=== PATIENT | female | born 1965 | race Caucasian/White ===

== ENCOUNTER 2017-12-27 12:10 | Inpatient (IN) | payer BC, OTHER ==
[~2017-12-27] VITALS: Ht 170.2 cm; Wt 95.5 kg
[~2017-12-27 12:10] MED LIST: CHOL200016 PO; ENOX80SY7 SUBCUT; MULT-1085 PO; RIVA20TA PO
[2017-12-27 12:33] LABS: BASOPHILS % (AUTO) 0.5 % (0-1); EOSINOPHILS # (AUTO) 0.1 X10'3 (0-0.9); EOSINOPHILS % (AUTO) 1.1 % (0-6); HEMATOCRIT 42.9 % (35.0-45.0); HEMOGLOBIN 14.9 g/dl (12.0-16.0); LYMPHOCYTES % (AUTO) 27.3 % (21-51); MEAN CORPUSCULAR HEMOGLOBIN 32.5 PG (27.0-31.0); MEAN CORPUSCULAR HGB CONC 34.7 % (33.0-36.5); MEAN CORPUSCULAR VOLUME 93.6 FL (78-98); MEAN PLATELET VOLUME 9.1 FL (7.4-10.4); MONOCYTES # (AUTO) 0.4 X10'3 (0-0.9); MONOCYTES % (AUTO) 4.7 % (2-12); NEUTROPHILS % (AUTO) 66.4 % (42-75); PLATELET COUNT 439 X10'3 (140-440); RED BLOOD COUNT 4.58 X10'6 (4.20-5.60); RED CELL DISTRIBUTION WIDTH 13.9 % (11.5-14.5); WHITE BLOOD COUNT 7.5 X10'3 (4.5-11.0)
[2017-12-27 12:44] LABS: PARTIAL THROMBOPLASTIN TIME 27 SECONDS (22-32)
[2017-12-27 12:58] LABS: ALANINE AMINOTRANSFERASE 35 U/L (12-78); ALBUMIN 3.9 G/DL (3.4-5.0); ALBUMIN/GLOBULIN RATIO 1.1 (1.1-1.5); ALKALINE PHOSPHATASE 56 IU/L (46-116); ANION GAP 10 (8-16); ASPARTATE AMINO TRANSFERASE 19 U/L (10-37); BILIRUBIN,TOTAL 0.9 MG/DL (0.1-1.0); BLOOD UREA NITROGEN 12 MG/DL (7-18); BUN/CREATININE RATIO 15.2 (6.6-38.0); CALCIUM 9.1 MG/DL (8.5-10.1); CHLORIDE 104 MMOL/L (99-107); CREATININE 0.79 MG/DL (0.40-0.90); GLUCOSE 97 MG/DL (70-104); SODIUM 141 MMOL/L (135-145); TOTAL CARBON DIOXIDE 26.9 MMOL/L (24-32); TOTAL PROTEIN 7.4 G/DL (6.4-8.2); eGFR 77 ML/MIN
[2017-12-27] MEDS ORDERED: iohexol 350MG/ML 100ml bottle IV ONE (13:01)
[2017-12-27] MEDS ORDERED: levoFLOXACIN-Levaquin 750MG/D5 150 ML IV STA (16:02)
[2017-12-27] MEDS ORDERED: ipratropium/albuterol 3ml nebule NEB PRN (17:15)
[2017-12-27] MEDS ORDERED: magnesium hydroxide 30ml (MOM) UD suspension PO PRN (17:15)
[2017-12-27] MEDS ORDERED: acetaminophen 325mg tablet PO PRN (17:15)
[2017-12-27] MEDS ORDERED: nitroGLYCERIN 0.4mg SUBLingual tab SL PRN (17:15)
[2017-12-27] MEDS ORDERED: ondansetron/PF 4mg/2ml inj IV PRN (17:15)
[2017-12-27] MEDS ORDERED: HYDROmorphone inj. 0.5 MG/0.5 ML DISP.SYRIN IV PRN ×2 (17:15)
[2017-12-27] MEDS ORDERED: regadenoson 0.4mg/5ml syringe IV ONE (17:15)
[2017-12-27] MEDS ORDERED: metoprolol tartrate 1mg/ml inj IV PRN (17:15)
[2017-12-27] MEDS ORDERED: mag hydrox/Alum hydrox/simeth 30ml oral suspension PO PRN (17:15)
[2017-12-27] MEDS: normal saline 1000ml 1,000 ML IV SCH (18:07)
[2017-12-27] MEDS ORDERED: HYDROcodone/acetaminophen 10/325mg tab PO PRN (19:15)
[2017-12-27] MEDS ORDERED: HYDROcodone/acetaminophen 5mg/325mg tablet PO PRN (19:15)
[2017-12-27 22:29] VITALS: BP 130/64
[2017-12-28] VITALS (22 sets, daily range): BP systolic 98–157; BP diastolic 55–82
[2017-12-28] MEDS: normal saline 1000ml 1,000 ML IV SCH ×3 (03:13→23:13)
[2017-12-28 04:17] LABS: BASOPHILS % (AUTO) 0.6 % (0-1); EOSINOPHILS # (AUTO) 0.1 X10'3 (0-0.9); EOSINOPHILS % (AUTO) 2.2 % (0-6); HEMATOCRIT 39.6 % (35.0-45.0); HEMOGLOBIN 13.7 g/dl (12.0-16.0); LYMPHOCYTES # (AUTO) 2.2 X10'3 (1.1-4.8); LYMPHOCYTES % (AUTO) 33.3 % (21-51); MEAN CORPUSCULAR HEMOGLOBIN 32.5 PG (27.0-31.0); MEAN CORPUSCULAR HGB CONC 34.5 % (33.0-36.5); MEAN CORPUSCULAR VOLUME 94.2 FL (78-98); MEAN PLATELET VOLUME 9.6 FL (7.4-10.4); MONOCYTES # (AUTO) 0.4 X10'3 (0-0.9); MONOCYTES % (AUTO) 6.6 % (2-12); NEUTROPHILS # (AUTO) 3.8 X10'3 (1.8-7.7); NEUTROPHILS % (AUTO) 57.3 % (42-75); PLATELET COUNT 373 X10'3 (140-440); RED BLOOD COUNT 4.21 X10'6 (4.20-5.60); RED CELL DISTRIBUTION WIDTH 14.2 % (11.5-14.5); WHITE BLOOD COUNT 6.6 X10'3 (4.5-11.0)
[2017-12-28 05:01] LABS: ALANINE AMINOTRANSFERASE 26 U/L (12-78); ALKALINE PHOSPHATASE 46 IU/L (46-116); ANION GAP 10 (8-16); ASPARTATE AMINO TRANSFERASE 16 U/L (10-37); BILIRUBIN,TOTAL 0.8 MG/DL (0.1-1.0); BLOOD UREA NITROGEN 12 MG/DL (7-18); BUN/CREATININE RATIO 14.5 (6.6-38.0); CALCIUM 8.1 MG/DL (8.5-10.1); CHLORIDE 104 MMOL/L (99-107); CHOL/HDL RATIO 2.8 (0.00-4.99); CHOLESTEROL 158 MG/DL (0-200); CREATININE 0.83 MG/DL (0.40-0.90); GLUCOSE 89 MG/DL (70-104); HDL CHOLESTEROL 57 MG/DL (35-60); LDL CHOLESTEROL 81 MG/DL (50-100); POTASSIUM 3.6 MMOL/L (3.5-5.1); SODIUM 140 MMOL/L (135-145); TOTAL CARBON DIOXIDE 26.2 MMOL/L (24-32); TOTAL PROTEIN 5.9 G/DL (6.4-8.2); TRIGLYCERIDES 105 MG/DL (20-135); eGFR 72 ML/MIN
[2017-12-28] MEDS ORDERED: regadenoson 0.4mg/5ml syringe IV ONE ×2 (07:00→09:47)
[2017-12-28] MEDS: enoxaparin 40mg/0.4ml syringe SQ SCH (08:00)
[2017-12-28] MEDS ORDERED: aminophylline inj. 0 ML IV ONE (09:47)
[2017-12-28] MEDS: aminophylline 250mg/10ml inj. IV PRN ×2 (09:49→10:14)
[2017-12-28] MEDS ORDERED: LIDOcaine 1%/PF (10mg/ml) 5ml vial ONE ×2 (15:52→16:23)
[2017-12-28] MEDS ORDERED: fentaNYL/PF 50MCG/1 ML 2ML syringe ONE (15:52)
[2017-12-28] MEDS ORDERED: nitroGLYCERIN-Tridil 50MG/D5W 250 ML IV ONE (15:52)
[2017-12-28] MEDS ORDERED: iohexol 350MG/ML 100ml bottle IV ONE (15:52)
[2017-12-28] MEDS ORDERED: midazolam 2 mg/2 ml injection ONE (15:52)
[2017-12-28] MEDS ORDERED: verapamil 2.5 mg/ml inj IV ONE (15:52)
[2017-12-28] MEDS ORDERED: heparin 1,000unit/ml 10ml vial 10 ML ONE (15:52)
[2017-12-28] MEDS ORDERED: nitroGLYCERIN 0.4mg SUBLingual tab SL PRN (17:35)
[2017-12-28] MEDS ORDERED: proCHLORperazine 10 MG/2 ml inj IV PRN (17:35)
[2017-12-28] MEDS ORDERED: HYDROcodone/acetaminophen 10/325mg tab PO PRN (17:35)
[2017-12-28] MEDS ORDERED: ondansetron/PF 4mg/2ml inj IV PRN (17:35)
[2017-12-28] MEDS ORDERED: OXAZEpam 15mg capsule PO PRN (17:35)
[2017-12-28] MEDS ORDERED: normal saline 1000ml 1,000 ML IV SCH (17:35)
[2017-12-28] MEDS ORDERED: HYDROcodone/acetaminophen 5mg/325mg tablet PO PRN (17:35)
[2017-12-29 03:00] VITALS: BP 108/55
[2017-12-29 05:15] LABS: BASOPHILS % (AUTO) 0.4 % (0-1); EOSINOPHILS # (AUTO) 0.1 X10'3 (0-0.9); HEMATOCRIT 40.7 % (35.0-45.0); LYMPHOCYTES # (AUTO) 1.8 X10'3 (1.1-4.8); LYMPHOCYTES % (AUTO) 24.7 % (21-51); MEAN CORPUSCULAR HEMOGLOBIN 32.3 PG (27.0-31.0); MEAN CORPUSCULAR HGB CONC 34.4 % (33.0-36.5); MEAN CORPUSCULAR VOLUME 93.8 FL (78-98); MEAN PLATELET VOLUME 9.6 FL (7.4-10.4); MONOCYTES # (AUTO) 0.4 X10'3 (0-0.9); MONOCYTES % (AUTO) 5.9 % (2-12); NEUTROPHILS # (AUTO) 4.9 X10'3 (1.8-7.7); PLATELET COUNT 372 X10'3 (140-440); RED BLOOD COUNT 4.34 X10'6 (4.20-5.60); RED CELL DISTRIBUTION WIDTH 13.6 % (11.5-14.5); WHITE BLOOD COUNT 7.3 X10'3 (4.5-11.0)
[2017-12-29 05:31] LABS: ALANINE AMINOTRANSFERASE 29 U/L (12-78); ALBUMIN 3.1 G/DL (3.4-5.0); ALBUMIN/GLOBULIN RATIO 1.1 (1.1-1.5); ALKALINE PHOSPHATASE 42 IU/L (46-116); ANION GAP 7 (8-16); ASPARTATE AMINO TRANSFERASE 19 U/L (10-37); BILIRUBIN,TOTAL 0.9 MG/DL (0.1-1.0); BLOOD UREA NITROGEN 10 MG/DL (7-18); BUN/CREATININE RATIO 13.2 (6.6-38.0); CALCIUM 8.1 MG/DL (8.5-10.1); CHLORIDE 106 MMOL/L (99-107); CREATININE 0.76 MG/DL (0.40-0.90); GLUCOSE 92 MG/DL (70-104); POTASSIUM 3.7 MMOL/L (3.5-5.1); SODIUM 140 MMOL/L (135-145); TOTAL CARBON DIOXIDE 26.9 MMOL/L (24-32); eGFR 80 ML/MIN
[2017-12-29 06:00] VITALS: BP 114/85
[2017-12-29] MEDS: enoxaparin 40mg/0.4ml syringe SQ SCH (08:29)
== END 2017-12-29 11:00 | disposition home or self-care (01) | DRG 287 ==
LOC: ER 12:11 → ED HOLD 17:13 → ORTHO 4S 22:00 → PCU 3S 12-28 16:55
PROVIDERS: ADMIT Family Medicine; ATTEND Family Medicine
PROC: 4A023N7 Measurement of Cardiac Sampling and Pressure, Left Heart, Percutaneous Approach (ICD-10-PCS; principal; 2017-12-28)
PROC: B2151ZZ Fluoroscopy of Left Heart using Low Osmolar Contrast (ICD-10-PCS; 2017-12-28)
PROC: B2111ZZ Fluoroscopy of Multiple Coronary Arteries using Low Osmolar Contrast (ICD-10-PCS; 2017-12-28)
DX: I20.0 Unstable angina (principal); D68.59 Other primary thrombophilia; Z90.710 Acquired absence of both cervix and uterus; Z88.0 Allergy status to penicillin; Z79.01 Long term (current) use of anticoagulants; Z86.718 Personal history of other venous thrombosis and embolism; Z82.49 Family history of ischemic heart disease and other diseases of the circulatory system; Z82.3 Family history of stroke
CPT/HCPCS: 36415; 71045; 71275; 78452; 80053; 80061; 84484; 85025; 85610; 85730; 87070; 93005; 93017; 93306; 93458; 94760; 99152; 99285; A4620; A6257; A9500; C1769; J0280; J1644; J1650; J1956; J2001; J2250; J3010; J3490; J7030; Q9967

== ENCOUNTER 2020-12-09 13:14 | Emergency (ER) | payer SELFPAY ==
[~2020-12-09 13:14] MED LIST changes: -CHOL200016 PO; -ENOX80SY7 SUBCUT; -RIVA20TA PO
== END 2020-12-09 14:56 | disposition left against medical advice (07) ==
LOC: ER 13:15
DX: R10.84 Generalized abdominal pain (principal); Z53.21 Procedure and treatment not carried out due to patient leaving prior to being seen by health care provider